=== PATIENT | male | born 1995 | race Caucasian/White ===

== ENCOUNTER 2016-05-29 11:58 | Emergency (ER) | payer MEDICAID ==
--- NOTE | ~2016-05-29 | CR123 ---
[facility] A Service of [facility] RADIOLOGY TEXT RESULTS PATIENT: SHALONDA LEWIS IV LOCATION: CFTX : [birth year] UNIT #: [id number] AGE: [address]: Jed Kate SEX: M ORDER DR: [id number] [facility] [address] [place], [place] [address] [id number] E MR#: [id number] #: [id number] NAME: SHALONDA LEWIS IV : 1995 SEX: M STUDY DATE/TIME: 05/29/2016 12:14 UNIT: [facility] ROOM: STUDY DESCRIPTION: CR Foot 2 Views Lt Attending Physician: Jed Kate Ordering Physician: Ed Doctor [id number] [facility] Primary Care Physician: [facility] MEDICAL IMAGING REPORT This report is preliminary unless electronic signature is present EXAM 3 views left foot INDICATION Pain and swelling for 1 day. No known injury. FINDINGS The tarsal, metatarsal, and phalangeal elements are all anatomically normal in position and alignment. There are no articular defects. No fractures or radiopaque foreign bodies in the soft tissues are apparent. IMPRESSION Negative. Dictated by... Idalia Damian M.D. THIS IS AN ELECTRONICALLY VERIFIED REPORT Idalia Damian M.D. at 05/29/2016 4:17 PM AFF/glenn TD: 05/29/2016 14:45 JOB #: [id number] MEDICAL IMAGING REPORT COPY
[~2016-05-29 11:58] MED LIST: ACETAMINOPHEN PO; AUGMENTIN PO; CLONIDINE HCL0.1 MG PO; DEBROX15 M1 OT; FAMOTIDINE20 MG PO; FLEXERIL PO; IBUPROFEN PO; KETOPROFEN PO; MAALOX SUSPENSI30 ML PO; MILK OF MAGNESIA PO; NAPROXEN PO; PHENERGAN PO; PHENERGAN25 MG PO; PREDNISONE PO; PREVACID30 MG/BLIS PO; PROZAC PO; TYLENOL #3 PO; VIBRAMYCIN100 M1 PO; VICODIN 5/1 TAB 5/50 PO; VICODIN 5/500 T1 TAB PO; ZITHROMAX PO; ZOLOFT PO; ZYRTEC PO
== END 2016-05-29 13:38 | disposition home or self-care (01) ==
LOC: CFTX 11:58
DX: M10.9 Gout, unspecified (principal); F17.210 Nicotine dependence, cigarettes, uncomplicated
CPT/HCPCS: 73620; 99283